=== PATIENT | female | born 1955 | race Caucasian/White ===

== ENCOUNTER 2016-10-17 05:49 | Emergency (ER) | payer SELFPAY ==
[~2016-10-17] VITALS: Ht 172.7 cm; Wt 81.0 kg
[2016-10-17] MEDS ORDERED: ALBUTEROL SULFATE 2.5 MG/3 ML NPPB ONE (06:00)
[2016-10-17] MEDS ORDERED: ALBUTEROL SULFATE 2.5 MG/3 ML ONE (06:02)
[2016-10-17] MEDS ORDERED: IPRA4AER INH (06:35)
[2016-10-17] MEDS ORDERED: ALBU0.63 NEB (06:35)
[2016-10-17 06:39] VITALS: BP 158/96
== END 2016-10-17 07:12 | disposition home or self-care (01) ==
LOC: ED 06:08
DX: J20.9 Acute bronchitis, unspecified (principal); J44.0 Chronic obstructive pulmonary disease with (acute) lower respiratory infection; F17.210 Nicotine dependence, cigarettes, uncomplicated
CPT/HCPCS: 71020; 93005; 94640; 99284; J7512; J7613